=== PATIENT | female | born 1975 | race Caucasian/White ===

== ENCOUNTER → 2017-08-02 | Outpatient (CLI) | payer OTHER | LOC: OD 11:03 | DX: O09.00 Supervision of pregnancy with history of infertility, unspecified trimester (principal); Z3A.00 Weeks of gestation of pregnancy not specified; N92.6 Irregular menstruation, unspecified | CPT/HCPCS: 36415; 84144; 84702 ==

== ENCOUNTER → 2017-08-05 | Outpatient (CLI) | payer OTHER | LOC: OD 10:01 | DX: O09.00 Supervision of pregnancy with history of infertility, unspecified trimester (principal) | CPT/HCPCS: 36415; 84702 ==

== ENCOUNTER → 2017-08-09 | Outpatient (CLI) | payer OTHER | LOC: LAB 15:39 | DX: O09.00 Supervision of pregnancy with history of infertility, unspecified trimester (principal); Z3A.00 Weeks of gestation of pregnancy not specified | CPT/HCPCS: 36415; 84702 ==

== ENCOUNTER → 2017-09-09 | Outpatient (CLI) | payer OTHER | LOC: OD 14:57 | DX: O09.00 Supervision of pregnancy with history of infertility, unspecified trimester (principal); N92.6 Irregular menstruation, unspecified | CPT/HCPCS: 36415; 84144; 84702 ==

== ENCOUNTER 2019-05-20 20:00 | Emergency (ER) | payer OTHER ==
--- NOTE | 2019-05-20 20:52 | ER Document Report ---
ED Psych Disorder / Suicide - General Stated Complaint: IVC Time Seen by Provider: 05/20/19 20:44 Primary Care Provider: TAYLOR BANERJEE,PRABHU GUTIERREZ MD [Primary Care Provider] - Follow up as needed Notes: Patient is a 43-year-old female that comes emergency department for chief complaint of being placed on IVC paperwork for homicidal ideations. Reportedly patient's is currently hospitalized, patient was reporting anger that he allowed himself to become ill and was making statements that she was going to take him home against doctor's wishes, kill him at home, and kill all of the children. is still hospitalized with an infection. [facility] had been contacted and they performed the IVC paperwork. Patient does have a history of bipolar disorder and possibly schizoid or schizoaffective. She is not on any medications, remain medical history includes celiac disease and GERD/PUD. On my initial evaluation patient is not responding to any questions, demanding that she not have to change her clothes and stating she was going to leave. TRAVEL OUTSIDE OF THE [place] IN LAST 30 DAYS: No - Related Data Allergies/Adverse Reactions: bacitracin [From Neosporin] Allergy (Severe, Verified 01/25/16 10:18) inflammation neomycin sulfate [From Neosporin] Allergy (Severe, Verified 01/25/16 10:18) [place] Penicillins Allergy (Severe, Verified 01/25/16 10:18) Anaphylaxis bacitracin zinc [From Neosporin] Allergy (Mild, Verified 01/25/16 10:18) [place] gramicidin D [From Neosporin] Allergy (Mild, Verified 01/25/16 10:18) [place] polymyxin B [From Neosporin] Allergy (Mild, Verified 01/25/16 10:18) [place] polymyxin B sulfate [From Neosporin] Allergy (Mild, Verified 01/25/16 10:18) Flushing Past Medical History - General Information source: Patient - Social History Smoking Status: Unknown if Ever Smoked Lives with: Family Family History: Reviewed & Not Pertinent - Past Medical History Cardiac Medical History: Denies: Hx Coronary Artery Disease, Hx Heart Attack, Hx Hypertension Pulmonary Medical History: Reports: Hx Bronchitis - hx of , Hx Pneumonia - hx of Denies: Hx Asthma, Hx COPD Neurological Medical History: Reports: Hx Migraine. Denies: Hx Cerebrovascular Accident, Hx Seizures GI Medical History: Reports: Hx Gastroesophageal Reflux Disease, Hx Ulcer Musculoskeletal Medical History: Denies Hx Arthritis Psychiatric Medical History: Reports: Hx Bipolar Disorder, Hx Obsessive Compulsive Disorder Past Surgical History: Reports: Hx Dilation and Curettage, Hx Gynecologic Surgery - d&c, Hx Tubal Ligation. Denies: Hx Hysterectomy, Hx Pacemaker - Immunizations Immunizations up to date: Yes Hx Diphtheria, Pertussis, Tetanus Vaccination: Yes Review of Systems - Review of Systems Constitutional: No symptoms reported EENT: No symptoms reported Cardiovascular: No symptoms reported Respiratory: No symptoms reported Gastrointestinal: No symptoms reported Genitourinary: No symptoms reported Female Genitourinary: No symptoms reported Musculoskeletal: No symptoms reported Skin: No symptoms reported Hematologic/Lymphatic: No symptoms reported Neurological/Psychological: See HPI Physical Exam - Notes Notes: GENERAL: Drowsy but cooperative, responds appropriately HEAD: Normocephalic, atraumatic. EYES: Pupils equal, round, and reactive to light. Extraocular movements intact. ENT: Oral mucosa moist, tongue midline. Oropharynx unremarkable. Airway patent. LUNGS: Clear to auscultation bilaterally, no wheezes, rales, or rhonchi. No re spiratory distress. HEART: Regular rate and rhythm. No murmur ABDOMEN: Soft, non-tender. Non-distended. EXTREMITIES: Moves all 4 extremities spontaneously. No edema, normal radial and dorsalis pedis pulses bilaterally. No cyanosis. BACK: no cervical, thoracic, lumbar midline tenderness. No saddle anesthesia, normal distal neurovascular exam. Moves all extremities in full range of motion. NEUROLOGICAL: Alert and oriented x3. Normal speech. Cranial nerves II through XII grossly intact. PSYCH: Drowsy, calm and relaxed now compared to initial encounter where I was unable to evaluate her completely SKIN: Warm, dry, normal turgor. No rashes or lesions noted. Course - Re-evaluation Re-evalutation: 05/20/19 21:05 Patient attempted to leave, was refusing lab work and to change out for close. However Dr. Epstein was still here, she did speak to the patient and patient did comply and come back to the room and is currently changing and having laboratory testing performed. Dr. Epstein recommends 5 mg of Zyprexa and 1 mg of Cogentin for medications, patient is under IVC paperwork and cannot leave. Patient is erratic and making homicidal statements. 05/20/19 21:44 Patient has become extremely agitated, attempted to leave again, threw herself at me when I attempted to examine her, patient had to be physically restrained. Dr. Epstein is still here, she requests that we start her on Zyprexa and Cogentin IM for severe agitation. She will also be given Benadryl at this time. The other medications were canceled and not given. Hopefully we can remove the restraints soon. 05/20/19 23:10 Patient is drowsy but relaxed and cooperative. She has no complaints at this time. She allows me to physically evaluate her, denies any symptoms at this time. CBC, chemistry unremarkable, alcohol negative, negative, EKG nonspecific especially without complaints of chest pain. Urinalysis still pending but based on her vital signs and evaluation she will be medically cleared regardless. She is on IVC paperwork, she was evaluated by mental health, Dr. Epstein did recommended Zyprexa 5 mg twice daily and Cogentin 1 mg twice daily, these were ordered. Patient will be reevaluated in the morning by the mental health team, she is pending disposition by them and she is medically cleared. - Laboratory Result Diagrams: 05/20/19 21:20 05/20/19 21:20 Laboratory results interpreted by me: 05/20/19 21:20 Salicylates < 1.0 L Acetaminophen < 10 L - EKG Interpretation by Me Additional EKG results interpreted by me: EKG shows sinus rhythm at a rate of 83, normal axis, QTC is borderline at 470, borderline right bundle branch block with borderline T waves anteriorly as well. No ischemic T waves ST segment changes in consecutive leads noted. Discharge - Discharge Clinical Impression: Homicidal ideations, Bizarre behavior Condition: Stable Disposition: PSYCH HOSP/UNIT Referrals: TAYLOR BANERJEE,PRABHU GUTIERREZ MD [Primary Care Provider] - Follow up as needed
[2019-05-20 21:33] LABS: ABSOLUTE BASOPHILS # (AUTO) 0.1 10^3/uL (0.0-0.2); ABSOLUTE EOSINOPHILS # (AUTO) 0.1 10^3/uL (0.0-0.6); ABSOLUTE LYMPHOCYTES (AUTO) 2.9 10^3/uL (0.5-4.7); ABSOLUTE MONOCYTES (AUTO) 0.7 10^3/uL (0.1-1.4); BASOPHILS % (AUTO) 1.1 % (0-2); EOSINOPHILS % (AUTO) 1.5 % (0-6); HEMATOCRIT 39.6 % (36.0-47.0); HEMOGLOBIN 13.7 g/dL (12.0-15.5); LYMPHOCYTES % (AUTO) 29.7 % (13-45); MEAN CORPUSCULAR HEMOGLOBIN 29.5 pg (27.0-33.4); MEAN CORPUSCULAR HGB CONC 34.5 g/dL (32.0-36.0); MEAN CORPUSCULAR VOLUME 86 fl (80-97); MONOCYTES % (AUTO) 7.1 % (3-13); PLATELET COUNT 287 10^3/uL (150-450); RED BLOOD COUNT 4.63 10^6/uL (3.72-5.28); RED CELL DISTRIBUTION WIDTH 12.9 % (11.5-14.0); SEGMENTED NEUTROPHILS % (AUTO) 60.6 % (42-78); TOTAL CELLS COUNTED % (AUTO) 100 %; WHITE BLOOD COUNT 9.9 10^3/uL (4.0-10.5)
[2019-05-20] MEDS ORDERED: DIPHENHYDRAMINE HCL 50 MG/ML VIAL IM ONE (21:39)
[2019-05-20] MEDS ORDERED: HALOPERIDOL LACTATE INJ 5 MG/1 ML VIAL IM ONE (21:39)
[2019-05-20] MEDS ORDERED: LORAZEPAM INJ 2 MG/1 ML VIAL IM ONE (21:39)
[2019-05-20] MEDS ORDERED: CHLORPROMAZINE HCL INJ 25 MG/1 ML AMPULE IM ONE (21:40)
[2019-05-20] MEDS ORDERED: OLANZAPINE INJ/PF 10 MG SDV IM ONE (21:43)
[2019-05-20] MEDS ORDERED: BENZTROPINE MESYLATE INJ 2 MG/2 ML AMPULE IM ONE (21:44)
[2019-05-20 21:54] LABS: ALBUMIN 4.5 g/dL (3.5-5.0); ALKALINE PHOSPHATASE 66 U/L (38-126); ANION GAP 12 (5-19); ASPARTATE AMINO TRANSFERASE 21 U/L (14-36); BILIRUBIN,DIRECT 0.2 mg/dL (0.0-0.4); BILIRUBIN,TOTAL 0.7 mg/dL (0.2-1.3); BLOOD UREA NITROGEN 15 mg/dL (7-20); CALCIUM 9.3 mg/dL (8.4-10.2); CARBON DIOXIDE 26 mmol/L (22-30); CHLORIDE 102 mmol/L (98-107); GLUCOSE 91 mg/dL (75-110); POTASSIUM 3.8 mmol/L (3.6-5.0); TOTAL PROTEIN 8.1 g/dL (6.3-8.2)
[2019-05-20 21:57] LABS: ACETAMINOPHEN < 10 ug/mL (10-30); ALCOHOL < 10 mg/dL (NONE DETECTED); SALICYLATE < 1.0 mg/dL (2.0-20.0)
[2019-05-21] MEDS ORDERED: BENZTROPINE MESYLATE 1 MG TABLET PO SCH (10:00)
[2019-05-21] MEDS ORDERED: OLANZAPINE 5 MG TABLET PO SCH (10:00)
--- NOTE | 2019-05-21 11:53 | PSYCHOLOGICAL NOTE ---
Psych Note - Psych Note Date seen by psych provider: 05/21/19 Time seen by psych provider: 11:00 Psych Note: Reason for consult: SI/HI Patient is a 43 year old female who presents to ED via [facility] on IVC petition after she endorsed suicidal and homicidal ideations. Patient threatened to take pills or drive into traffic. Patient threatened to kill her and her children. Patient states she is "angry." Patient states she is usually able to manage her anger, but became "overwhelmed" yesterday. Patient states is not sick. Patient states the "Doctors are just stupid and overly cautious." Patient begged clinician for discharge. Patient states she has "things to do" (clean the home, go to work, take care of children). Clinician notes significant OCD tenancies (must vacuum daily, must use certain rags, must clean patient's way). Patient has historically provided care for children and on her own. Speaking of her , patient states "he's stupid and doesn't listen to me, he's gained a lot of weight, he's over 500lbs." Patient denies current SI/HI. Patient states she was angry and overwhelmed and "said things out of anger." Patient is linked with [facility] through [facility] due to her child having a diagnosis of Autism with behavior concerns. Per chart review, patient is refusing to eat Patient states she will "sign a waiver for discharge." Patient states "keeping me here is just going to make me worse." Patient remarked that all of this is being done against my will. Clinician discussed her not eating. Patient states she "will eat my own food at home." Clinician notes patient has little insight into her current circumstance. Clinician notes patient attempts to exert control her environment and family. Clinician attempted to speak with patient regarding taking care of her self care, being strong for the family for so long, control the environment when we don't feel control inside, needing help, etc. Patient was receptive, yet unable to verbalize insight into how her thoughts and behaviors are contributing factor s. Collateral information obtained from Quynh Medley from [facility], [facility] logistics team lead. Patient and family received services for 6 months about a year ago. [facility] has been back with the family since the end of March 2019. Quynh states patient's presentation is "out of character." Quynh states patient is generally "anxious, yet loving and fun with the children." Patient has a child with "challenging behaviors" that can be overwhelming for patient. Quynh stated patient was "very open with everyone" regarding her SI/HI. Quynh states patient is in denial regarding her 's health concerns. Patient was informed of transfer to [facility]. Patient stated "I have to go to work tomorrow, I'll eat your food, I took your medicine." Clinician informed patient those were pieces of the bigger picture, and clinician continued to explain the transfer process to include patient has to be handcuffed during transpo per [facility] policy. Patient requested clinician inform her . Patient is alert and oriented to person, place, time and circumstance. Mood is tearful with congruent affect. Patient denies current suicidal and homicidal ideations. There is no observed behavior that suggests patient is responding to internal stimuli. Patient denies current auditory and visual hallucinations. Eye contact is appropriate. Conversational speech is mildly pressured. Intellectual ability appears to be within average range. Attention and concentration are good. Insight, judgment and impulse control are currently poor. Medication recommendations per [facility] contracted psychiatrist Dr. Jerry RIDER is as follows: Zyprexa 5MG, twice a day Cogentin 1MG, twice a day Impression/Plan: Patient is recommended for continued IVC. Medication recommendations have been provided. Patient endorsed SI/HI. Patient has limited insight into how her thoughts and behaviors are contributing to her circumstance. There is no observed behavior that suggests patient is responding to internal stimuli. Plan is to stabilize and obtain appropriate placement. Cluster B traits are noted. CPS report was placed. Patient was accept to for placement at [facility]. Patient was Dr. Epstein was consulted on the care and management of this patient; attending physician is in agreement with recommendations and disposition.
[2019-05-21 11:59] VITALS: BP 126/77
--- NOTE | 2019-05-21 12:53 | ER Document Report ---
Doctor's Note Notes: 05/21/19 12:49 44-year-old female brought in yesterday for evaluation of anger management, homicidal ideation. Patient required restraint last night both chemical and physical. Patient was medically cleared for psychiatric care, evaluated by psychiatric care. Patient meets criteria for involuntary commitment given her c ontinued anger and homicidal intent. Patient is awake and alert answering questions appropriately. She does indicate she would prefer to go home. She is aware that she is being transferred to a facility under IVC today. Patient is moving all extremities well. She still does endorse aggressive thoughts. Lung sounds are clear to auscultation. Regular rate and rhythm. is at the bedside for transport. discussed with attending Dr. Fry who evaluated patient (JIAN RODRIGUEZ) 05/21/19 15:27 I did personally see and examine this patient in conjunction with [employer] Jian Rodriguez. Patient is having continuing anger and aggression, she is still concerning for possible harm to others. Still meets IVC criteria. Had received sedating medications last evening. Has no complaints aside from the fact that she would like to go home. Patient is stable for transport with the health commissioner. No respiratory distress, moves all 4 extremities spontaneously, no facial droop. Mentating well. (THOMAS FRY)
--- NOTE | 2019-05-21 22:02 | EKG REPORT ---
SEVERITY:- ABNORMAL ECG - SINUS RHYTHM INCOMPLETE RIGHT BUNDLE BRANCH BLOCK : Confirmed by: Juan David Leslie 21-May-2019 22:02:27
== END 2019-05-21 12:58 ==
LOC: ER 20:00
DX: R45.850 Homicidal ideations (principal); R45.4 Irritability and anger
CPT/HCPCS: 93005; 99285; 96372; 36415; 80307 ×3; 84703; 85025; 80053; 93010; J0515; J1200

== ENCOUNTER → 2019-11-06 | Outpatient (CLI) | payer OTHER ==
[2019-11-06 13:37] LABS: A TYPE INFLUENZA AG NEGATIVE (NEGATIVE); B INFLUENZA AG NEGATIVE (NEGATIVE)
[2019-11-06 14:12] VITALS: BP 123/54
--- NOTE | 2019-11-06 14:12 | ER RDC ASSESSMENT REPORT ---
Intake - In the Last 14 days Have you traveled outside [place]?: No Have you been in close contact with someone CONFIRMED: No Worked in Healthcare?: No - Symptoms Subjective Fever([place] feverish): No Chills: Yes Muscule Aches: No Runny Nose: No Sore Throat: No Cough (New or worsening chronic cough): Yes Shortness of breath: No Nausea or Vomiting: Yes Headache: Yes Abdominal Pain: Yes Diarrhea(3 or more loose stools in last 24 hours): Yes - Do you have any of the following Chronic lung disease: Asthma or emphysema or COPD: No Cystic Fibrosis: No Diabetes: No High Blood Pressure: No Cardiovascular Disease: No Chronic Kidney Disease: No Chronic Liver Disease: No Chronic blood disorder like Sickle Cell Disease: No Weak immune system due to disease or medication: No Neurologic condition that limits movement: No Developmental delay - Moderate to Severe: No Recent (within past 2 weeks) or current : No Morbid Obesity (>100 pounds over ideal weight): No - Objective Vital Signs: 5'5" 216 lb Temperature: 97.4 F Pulse Rate: 108 Respiratory Rate: 18 Blood Pressure: 123/54 O2 Sat by Pulse Oximetry: 95 Objective: Given above, testing performed: flu, strep, covid Disposition: Home; Selfcare General - General Chief Complaint: Flu Symptoms Time Seen by Provider: 11/06/19 12:15 Mode of Arrival: Ambulatory Information source: Patient - HPI Notes: 44-year-old female presents to [facility] clinic for COVID-19 testing. Patient has medical history significant only for GERD and DJD. Patient reports onset of symptoms 10/31/2019. She is reporting moderate chills, fatigue, lethargy, cough that is dry, nausea, headache, abdominal pain and diarrhea. No exacerbating or relieving factors. She is denying any fever, myalgia, rhinorrhea, sore throat or shortness of breath. - Related Data Allergies/Adverse Reactions: bacitracin [From Neosporin] Allergy (Severe, Verified 01/25/16 10:18) inflammation neomycin sulfate [From Neosporin] Allergy (Severe, Verified 01/25/16 10:18) [place] Penicillins Allergy (Severe, Verified 01/25/16 10:18) Anaphylaxis bacitracin zinc [From Neosporin] Allergy (Mild, Verified 01/25/16 10:18) [place] gramicidin D [From Neosporin] Allergy (Mild, Verified 01/25/16 10:18) [place] polymyxin B [From Neosporin] Allergy (Mild, Verified 01/25/16 10:18) [place] polymyxin B sulfate [From Neosporin] Allergy (Mild, Verified 01/25/16 10:18) Flushing Past Medical History - General Information source: Patient - Social History Smoking Status: Never Smoker Family History: Reviewed & Not Pertinent - Past Medical History Cardiac Medical History: Reports: None Denies: Hx Coronary Artery Disease, Hx Heart Attack, Hx Hypertension Pulmonary Medical History: Reports: Hx Bronchitis - hx of , Hx Pneumonia - hx of Denies: Hx Asthma, Hx COPD EENT Medical History: Reports: None Neurological Medical History: Reports: Hx Migraine. Denies: Hx Cerebrovascular Accident, Hx Seizures Renal/ Medical History: Reports: None Malignancy Medical History: Reports: None GI Medical History: Reports: Hx Gastroesophageal Reflux Disease, Hx Ulcer Musculoskeletal Medical History: Reports None, Denies Hx Arthritis Skin Medical History: Reports None Psychiatric Medical History: Reports: Hx Bipolar Disorder, Hx Obsessive Compulsive Disorder Traumatic Medical History: Reports: None Infectious Medical History: Reports: None Past Surgical History: Reports: Hx Dilation and Curettage, Hx Gynecologic Surgery - d&c, Hx Tubal Ligation. Denies: Hx Hysterectomy, Hx Pacemaker Physical Exam - General General appearance: Alert In distress: None Notes: PHYSICAL EXAMINATION: GENERAL: Ill-appearing but in no acute distress. HEAD: Atraumatic, normocephalic. EYES: sclera anicteric, conjunctiva are normal. ENT: nares patent. Moist mucous membranes. NECK: Normal range of motion, supple without lymphadenopathy LUNGS: CTAB and equal. No wheezes rales or rhonchi. HEART: Regular rate and rhythm without murmurs ABDOMEN: Soft, nontender, normal bowel sounds, no guarding. EXTREMITIES: Normal range of motion, no pitting edema. No cyanosis. NEUROLOGICAL: Cranial nerves grossly intact. Normal speech. PSYCH: Normal mood, normal affect. SKIN: Warm, Dry, normal turgor, no rashes or lesions noted Diagnostic Results Laboratory Results: 11/06/19 12:45 Throat Throat Culture - Pending Influenza A (Rapid) NEGATIVE (NEGATIVE) 11/06/19 12:45 Influenza B (Rapid) NEGATIVE (NEGATIVE) 11/06/19 12:45 Group A Strep Rapid NEGATIVE (NEGATIVE) 11/06/19 12:45 Patient Education/Counseling Counseling/Education: Patient presents with upper respiratory symptoms worrisome for possible Covid 19. Patient does not have emergency worrying symptoms such as difficulty breathing, shortness of breath, chest pain, pressure, confusion or cyanosis. Patient appears suitable for discharge as vital signs are stable and patient is nontoxic in appearance. Encouraged fluids to prevent further dehydration. Good return precautions have been discussed with patient, patient verbalized understanding and is agreeable with discharge plan of care at this time. Guidance for worsening S/SX: As a person under investigation for Covid 19, the [place] department of Health and Human Services, division of public health advises you to adhere to the following guidance until your test results are reported to you. If your test result is positive, you will receive additional information from your provider and your local health department at that time. Remain at home until you are cleared by the health provider or public health authorities. Keep a log of visitors to your home, notify any visitors to your home of your isolation status. If you plan to move to a new address or leave the county, notify the local health department in your County. Call your doctor or seek care if you have an urgent medical need. Before seeking medical care, call ahead to get instructions from the provider before arriving at the medical office clinic or hospital. Notify them that you are being tested for the virus that causes Covid 19 so that arrangements can be made, as necessary, to prevent transmission to others in the healthcare setting. Next, notify the local health department in your county. If a medical emergency arises and you need to call 911, inform the first responders that you are being tested for the virus that causes Covid 19. Next, notify the local health department in your county. RDC Discharge - Discharge Clinical Impression: Encounter for screening laboratory testing for COVID-19 virus Diarrhea Qualifiers: Diarrhea type: unspecified type Qualified Code(s): R19.7 - Diarrhea, unspecified Condition: Stable Disposition: Home; Selfcare
== END ==
LOC: RDC 11:58
PROVIDERS: ATTEND Registered Nurse
DX: Z20.828 Contact with and (suspected) exposure to other viral communicable diseases (principal)
CPT/HCPCS: 87070; 87880; 87635; 87804; C9803

== ENCOUNTER 2020-01-06 06:54 | Day surgery (SDC) | payer OTHER ==
[2020-01-06] MEDS ORDERED: PROPOFOL INJ 200 MG/20 ML VIAL IV ONE (07:36)
--- NOTE | 2020-01-06 09:06 | Operative Report ---
Operative Report DATE OF SURGERY: 01/06/20 Operative Report: The risks benefits and alternatives of the procedure explained to the patient in detail and informed consent is obtained.A GIF Olympus video scope was inserted into the patient's mouth and hypopharynx, the esophagus is identified intubated and insufflated ,the scope was then advanced through the esophagus stomach and duodenum, retroflexion maneuver is done, the esophagus stomach and first and second portions of the duodenum examined PREOPERATIVE DIAGNOSIS: Gastroesophageal reflux disease POSTOPERATIVE DIAGNOSIS: Gastritis status post biopsy. Small hiatal hernia OPERATION: EGD with biopsy SURGEON: AFSANEH DE JESUS ANESTHESIA: LMAC TISSUE REMOVED OR ALTERED: As noted above. COMPLICATIONS: None. ESTIMATED BLOOD LOSS: None. INTRAOPERATIVE FINDINGS: As noted above. PROCEDURE: Patient tolerated the procedure well. No immediate postprocedure complications are noted. Patient is discharged in good condition. Discharge date 01/06/2020. Discharge diet: Regular. Discharge activity: Regular. 2 to 3-week follow-up to discuss findings. Patient is instructed to call the office or proceed to the emergency room should there be any further problems or questions. Wait on the pathology.
[2020-01-06 09:37] VITALS: BP 123/89
== END 2020-01-06 09:37 | disposition home or self-care (01) ==
LOC: END 06:54
PROVIDERS: ATTEND Internal Medicine Gastroenterology
DX: K29.50 Unspecified chronic gastritis without bleeding (principal); K44.9 Diaphragmatic hernia without obstruction or gangrene; K21.9 Gastro-esophageal reflux disease without esophagitis; Z88.0 Allergy status to penicillin
CPT/HCPCS: 43239; 88305 ×2; J2704

== ENCOUNTER → 2020-01-15 | Outpatient (CLI) | payer OTHER ==
--- NOTE | 2020-01-15 18:19 | RADIOLOGY REPORT (SQ) ---
EXAM DESCRIPTION: NM HIDA SCAN WITH CCK IMAGES COMPLETED DATE/TIME: 01/15/2020 10:59 am REASON FOR STUDY: BILIOUS VOMITING R11.14 BILIOUS VOMITING COMPARISON: None. RADIONUCLIDE AND DOSE: DOSAGE RADIONUCLIDE: 5.39 millicuries Tc99m Mebrofenin. DOSAGE CCK: 1.9 micrograms. DOSAGE MORPHINE: Not required. The route of agent administration: Intravenous TECHNIQUE: Serial imaging right upper quadrant up to 60 minutes following injection of radionuclide. CCK injected after gallbladder visualized. LIMITATIONS: None. FINDINGS: LIVER: Normal visualization without areas of photopenia. INTRAHEPATIC BILE DUCTS: Normal size and no delay in visualization. COMMON BILE DUCT: Normal without dilatation. GALLBLADDER: Normal visualization. Calculated ejection fraction of 78%. Normal range is greater th an 35%. PHYSICAL RESPONSE: 3 out of 5 nausea, reportedly reproduction of symptoms. OTHER: No other significant finding. IMPRESSION: Normal gallbladder ejection fraction. Patient did suffer similar symptoms with CCK inje ction but the study is otherwise normal. TECHNICAL DOCUMENTATION: JOB ID: [id number] 2010 [employer]- All Rights Reserved Reading location - IP/workstation name: [email or web address]
--- NOTE | 2020-01-15 18:19 | RADIOLOGY REPORT (SQ) ---
EXAM DESCRIPTION: U/S ABDOMEN LIMITED W/O DOP IMAGES COMPLETED DATE/TIME: 01/15/2020 10:59 am REASON FOR STUDY: BILIOUS VOMITING R11.14 BILIOUS VOMITING COMPARISON: None. TECHNIQUE: Dynamic and static grayscale images acquired of the abdomen and recorded on PACS. Additio nal selected color Doppler and spectral images recorded. Note: Exam does not meet criteria for a complete doppler/duplex scan LIMITATIONS: Study limited due to acoustical interference from fat or from air in the bowel. FINDINGS: PANCREAS: Poorly seen secondary to acoustical interference from fat or from air in the bow el. No visualized masses. Duct normal caliber as seen. LIVER: Echotexture is coarse with increased echogenicity consistent with fatty infiltration. LIVER VASCULATURE: Normal directional flow of the main portal vein and hepatic veins. GALLBLADDER: No stones. Normal wall thickness. No pericholecystic fluid. ULTRASOUND-DETECTED THAKKAR'S SIGN: Negative. INTRAHEPATIC DUCTS AND COMMON DUCT: CBD and intrahepatic ducts normal caliber. No filling defects. INFERIOR VENA CAVA: Normal flow. AORTA: No aneurysm. RIGHT KIDNEY: Normal size. Normal echogenicity. No solid or suspicious masses. No hydronephrosis. No calcifications. PERITONEAL AND PLEURAL SPACES: No ascites or effusions. OTHER: No other significant finding. IMPRESSION: FATTY INFILTRATION OF THE LIVER. NO OTHER SIGNIFICANT FINDING IN THE VISUALIZED ABDOMEN. TECHNICAL DOCUMENTATION: JOB ID: [id number] [employer]- All Rights Reserved Reading location - IP/workstation name: [email or web address]
== END ==
LOC: RAD 07:44
PROVIDERS: ATTEND Internal Medicine Gastroenterology
DX: R11.14 Bilious vomiting (principal)
CPT/HCPCS: 76705; 78227; J2805; A9537; Q9969

== ENCOUNTER 2020-03-23 07:08 | Day surgery (SDC) | payer OTHER ==
[2020-03-21 11:50] LABS: HEMATOCRIT 41.5 % (36.0-47.0); HEMOGLOBIN 14.5 g/dL (12.0-15.5); MEAN CORPUSCULAR HEMOGLOBIN 29.6 pg (27.0-33.4); MEAN CORPUSCULAR VOLUME 85 fl (80-97); PLATELET COUNT 266 10^3/uL (150-450); RED BLOOD COUNT 4.91 10^6/uL (3.72-5.28); RED CELL DISTRIBUTION WIDTH 13.2 % (11.5-14.0); WHITE BLOOD COUNT 10.6 10^3/uL (4.0-10.5)
[2020-03-21 12:18] LABS: ALBUMIN 4.6 g/dL (3.5-5.0); ALKALINE PHOSPHATASE 79 U/L (38-126); AMYLASE 62 U/L (30-110); ANION GAP 16 (5-19); ASPARTATE AMINO TRANSFERASE 21 U/L (14-36); BILIRUBIN,TOTAL 0.4 mg/dL (0.2-1.3); BLOOD UREA NITROGEN 14 mg/dL (7-20); CALCIUM 9.8 mg/dL (8.4-10.2); CARBON DIOXIDE 20 mmol/L (22-30); CHLORIDE 105 mmol/L (98-107); GLUCOSE 92 mg/dL (75-110); POTASSIUM 4.3 mmol/L (3.6-5.0)
[~2020-03-23 07:08] MED LIST: ACETAMINOPHEN 325 MG TABLET PO PRN; CIPROFLOXACIN HCL 500 MG TABLET PO PRN; FENTANYL CITRATE INJ/PF 250 MCG/5 ML AMPULE ONE; LACTATED RINGERS 1000 ML IV PRN; LIDOCAINE 0.5% INJ-PF (5 MG/ML) 50 ML SDV SUBCUT PRN; MIDAZOLAM 2 MG/2 ML INJ ONE; PROPOFOL INJ 200 MG/20 ML VIAL IV ONE; RINGERS SOLUTION,LACTATED 1,000 ML IV PRN; SUGAMMADEX SODIUM 200 MG/2 ML SDV IV ONE
[2020-03-23] MEDS ORDERED: CIPROFLOXACIN 400 MG/D5W RTU 400 MG/200 ML RTUPB IV ONE (08:30)
[2020-03-23] MEDS ORDERED: BUPIVACAINE HCL 0.25 % INJ/PF (2.5 MG/1 ML) 30 ML VIAL ONE (08:34)
[2020-03-23] MEDS ORDERED: CIPROFLOXACIN 400 MG/D5W RTU 400 MG/200 ML RTUPB IV PRN (08:46)
[2020-03-23] MEDS ORDERED: PROMETHAZINE HCL INJ 25 MG/1 ML VIAL IV PRN ×2 (09:19)
[2020-03-23] MEDS ORDERED: MORPHINE SULFATE 10 MG/ML INJ IV PRN (09:19)
[2020-03-23] MEDS ORDERED: FENTANYL CITRATE INJ/PF 100 MCG/2 ML AMPUL IV PRN ×3 (09:19)
[2020-03-23] MEDS ORDERED: OXYCODONE-ACETAMINOPHEN 5-325 MG TABLET PO PRN ×3 (09:19→09:53)
[2020-03-23] MEDS ORDERED: MEPERIDINE HCL/PF INJ 25 MG/1 ML DISP.SYRIN IV PRN (09:19)
[2020-03-23] MEDS ORDERED: DIPHENHYDRAMINE HCL 50 MG/ML VIAL IV PRN (09:19)
--- NOTE | 2020-03-23 09:47 | Operative Report ---
Operative Report DATE OF SURGERY: 03/23/20 PREOPERATIVE DIAGNOSIS: Chronic cholecystitis with cholelithiasis POSTOPERATIVE DIAGNOSIS: Same OPERATION: Laparoscopic cholecystectomy SURGEON: ALESSANDRA LYN CORRECTIONAL CORPORAL: FEDER[facility]I ANESTHESIA: GA TISSUE REMOVED OR ALTERED: 1 gallbladder with contents COMPLICATIONS: None ESTIMATED BLOOD LOSS: Minimal INTRAOPERATIVE FINDINGS: See below PROCEDURE: Patient was taken to the preop holding area the main operating where general anesthesia was induced. Arms abducted, abdomen prepped and draped in sterile fashion and instrumentation set up for laparoscopic cholecystectomy Plan and surgical timeout were conducted. Markings were made on the skin for for port laparoscopy. All sites anesthetized with 1% plain lidocaine. A vertical incision was made over the umbilicus with a 15 blade, Veress needle inserted the peritoneal cavity, pneumoperitoneum was established. Veress needle was removed, 5 mm port was inserted, 5 mm flexible viewing scope was inserted into the peritoneal cavity. There was no evidence of vascular or visceral injury. Under direct visualization 3 additional ports were placed, one in the subxiphoid, and 2 in the subcostal position There were moderate adhesions between the infundibulum of the gallbladder, and the subhepatic space. These adhesions were taken down using a combination of blunt and careful hook electrocautery dissection. Graspers were then placed on the fundus and the infundibulum of the gallbladder, and the gallbladder was elevated off of the inferior surface of the liver. The neck of the gallbladder junction with the cystic duct was dissected out. The triangle of Calot opened sufficiently to identify the cystic duct and cystic artery clearly. The cystic artery was clipped twice proximally once distally divided with scissors. The critical view was obtained. Photos were obtained. We are now about to divide the cystic duct. We got on both the right and left sides of the cystic duct to confirm we were out to divide the cystic duct as intended. The cystic duct clipped twice proximally once distally divided with scissors. The gallbladder was removed from the liver bed using hook cautery dissection. The specimen was removed from the supraumbilical port site incision without difficulty and no spillage of bile. The specimen was sent to pathology for permanent analysis. We returned the peritoneal cavity check for bleeding there was none. Photos of the artery and cystic duct stumps with the respective clips obtained. Patient was leveled out. Sponge and counts are correct. All ports removed under direct visualization, pneumoperitoneum evacuated, wounds closed with 0 Vicryl, 3-0 Vicryl, benzoin and Steri-Strips. Patient tolerated the procedure well, extubated, and taken to the recovery room in stable condition. BILL Salas assisted with port insertion, tissue retraction, and closure of operative incisions.
--- NOTE | 2020-03-23 09:53 | Discharge Summary ---
Discharge Summary (SDC) - Discharge Final Diagnosis: chronic cholecystitis Date of Surgery: 03/23/20 Discharge Date: 03/23/20 Condition: Good Forms: ASU Anesthesia D/C Instruction, Discharge POC-Surgical Service Treatment or Instructions: [facility] [address], [place] [address] Discharge Instructions: Laparoscopic Surgery 1. General Information: a. DO NOT DRIVE a car or operate dangerous machinery for 3-4 days or while taking narcotic pain pills. b. DO NOT consume alcohol, tranquilizers, sleeping medications or any non- prescribed medications for 24 hours unless approved by your doctor or as long as taking narcotic prescription medications. c. DO NOT make important decisions or sign any important papers for the first 24 hours after surgery. d. When discharged home the same day of surgery have a responsible person with you for the first night. 2. Activity Restrictions: 2 weeks a. NO heavy lifting, straining abdominal muscles, bending over a lot, yard work, house work, or sports for [address] for 3-4 days . c. It is fine to go for walks, up and down steps, ride in a car. d. Elevate your head when sleeping/resting. 3. Treatment: a. You may shower 24 hours after surgery, no baths or swimming for 2 weeks. Remove band-aids or dressings before shower but leave paper strips (steri- strips) on the skin to fall off on their own. If still on at postoperative visit they will be removed then. b. Drainage of fluid or blood is not unusual from an incision. If occurs, you can clean with peroxide and cotton ball daily and cover with dry gauze until the wound seals. c. If a lot of bleeding occurs, you can hold pressure with a gauze or cloth over the site for 10 minutes and it will usually stop. If bleeding continues you will need to call for possible evaluation in office or emergency room. 4. Medications: a. __Toradol_ may be taken for pain as needed, one tablets every 6 hours. Do not take additional NSAIDs with medication. You may take Tylenol as needed. b. You should resume all normal medications unless a change is specified by your doctors. 5. Diet: Begin with clear liquids and may progress to your normal diet if not nauseated. No high fat, high protein foods the day of surgery. 6. The following may occur after laparoscopic surgery: a. Shoulder or upper back ache from retained gas that should resolve in 1-2 days b. Soreness and bruising at incision sites will resolve with time. c. Scrotal swelling (labia in women) and bruising is often seen after hernia surgery. d. Sore throat e. Fatigue may last days to weeks. f. Difficulty urinating may occur and may need to come into emergency room for urinary catheter placement. 7. Notify Physician If: a. Worsening or pain not improved with pain medication b. Persistent nausea and vomiting c. Fever above 101 d. Persistent bleeding or swelling at operative site e. Unable to urinate and uncomfortable bladder 6-8 hours after surgery 8..Follow Up Care: a. Schedule a follow up appointment with your doctor for 2 weeks. In the event of any postoperative problems or questions or you may call the office during business hours or the On-Call physician evenings and weekends at [facility]. [facility] I understand the instructions for my postoperative care as described above and a copy has been given to me. Patient/Significant Other Witness Date Prescriptions: Ketorolac Tromethamine [Toradol 10 mg Tablet] 10 mg PO Q6HP PRN #20 tablet PRN Reason: Referrals: ALESSANDRA CUELLO MD [ACTIVE STAFF] - Discharge Diet: Other (Comments) - small bland portions then progress Discharge Activity: Balance Activity w/Rest, No Lifting Over 10 Pounds, No Lifting/Push/Pulling Report the Following to Your Physician Immediately: Nausea, Vomiting, Increase in Pain, Fever over 101 Degrees, Unusual Bleeding, Redness, Swelling, Warmth, Drainage-Foul Smelling
[2020-03-23] MEDS ORDERED: PROMETHAZINE HCL INJ 25 MG/1 ML VIAL ONE (10:08)
[2020-03-23] MEDS: MEPERIDINE HCL/PF INJ 25 MG/1 ML DISP.SYRIN ONE ×2 (10:15→10:20)
[2020-03-23] MEDS ORDERED: OXYCODONE-ACETAMINOPHEN 5-325 MG TABLET ONE (10:53)
[2020-03-23] MEDS ORDERED: SUCCINYLCHOLINE CHLORIDE INJ 200 MG/10 ML VIAL ONE (16:09)
[2020-03-23] MEDS ORDERED: METOCLOPRAMIDE HCL INJ/PF 10 MG/2 ML SDV ONE (16:09)
[2020-03-23] MEDS ORDERED: KETOROLAC TROMETHAMINE 60 MG/2 ML SDV ONE (16:09)
[2020-03-23] MEDS ORDERED: DEXAMETHASONE SOD PHOSPHATE INJ 4 MG/1 ML VIAL ONE (16:09)
[2020-03-23] MEDS ORDERED: ONDANSETRON HCL INJ/PF 4 MG/2 ML SDV ONE (16:09)
[2020-03-23] MEDS ORDERED: ROCURONIUM BROMIDE INJ 50 MG/5 ML VIAL IV ONE (16:09)
[2020-03-23] MEDS ORDERED: DIPHENHYDRAMINE HCL 50 MG/ML VIAL ONE (16:09)
[2020-03-23 17:17] VITALS: BP 122/80
--- OUTSIDE RECORDS SUMMARY | 2020-03-24 17:54 | XMS REPORT ---
:1975 Author Organization [facility] Address [facility] [address] [place] [address] Care Team Providers Name Role Phone Bundle Attending Clinician Unavailable Bundle Attending Clinician Unavailable Seun Attending Clinician Unavailable Allergies, Adverse Reactions, Alerts This patient has no known allergies or adverse reactions. Medications Ordered Filled Start Stop Current Ordering Indication Dosage Frequency Signature Comments Components Medication Medication Date Date Medication? Clinician (SIG) Name Name diazepam 5 No diazepam 5 mg tablet mg tablet eszopiclone No eszopiclon 2 mg tablet e 2 mg tablet eszopiclone No eszopiclon 3 mg tablet e 3 mg tablet gabapentin No gabapentin 100 mg 100 mg capsule capsule hydroxyzine No hydroxyzin pamoate 25 e pamoate mg capsule 25 mg capsule ibuprofen No ibuprofen 600 mg 600 mg tablet tablet ibuprofen No ibuprofen 800 mg 800 mg tablet tablet levofloxaci No levofloxac n 500 mg in 500 mg tablet tablet oxycodone-a No oxycodone- cetaminophe acetaminop n 5 mg-325 hen 5 mg tablet mg-325 mg tablet prednisone No prednisone 10 mg 10 mg tablet tablet ProAir HFA No ProAir HFA 90 90 mcg/actuati mcg/actuat on aerosol ion inhaler aerosol inhaler risperidone No risperidon 2 mg tablet e 2 mg tablet risperidone No risperidon 3 mg tablet e 3 mg tablet sertraline No sertraline 100 mg 100 mg tablet tablet trazodone No trazodone 50 mg 50 mg tablet tablet triazolam No triazolam 0.25 mg 0.25 mg tablet tablet benzonatate No benzonatat 200 mg e 200 mg capsule capsule benztropine No benztropin 2 mg tablet e 2 mg tablet cefdinir No cefdinir 300 mg 300 mg capsule capsule clindamycin No clindamyci HCl 300 mg n HCl 300 capsule mg capsule cyclobenzap No cyclobenza rine 10 mg renetta 10 tablet mg tablet Problems Condition Condition Condition Status Onset Resolution Last Treatin g Comments Name Details Category Date Date Treatment Clinician Date Not on file Not on file [id number] Procedures Procedure Date / Time Performed Performing Clinician Devic e OFFICE/OUTPATIENT VISIT EST 2019-11-03 14:30:00 XR, lumbar spine 2019-10-22 00:00:00 MRI, lumbar spine, w/o contrast 2019-10-22 00:00:00 OFFICE/OUTPATIENT VISIT EST 2017-11-06 13:30:00 OFFICE/OUTPATIENT VISIT EST 2017-01-29 16:15:00 OFFICE/OUTPATIENT VISIT EST 2016-12-20 08:30:00 Results Test Description Test Time Test Comments Text Results Atomic Results Result Comments SARS-CoV-2, JOSE\S\ 2020-01-01 00:00:00 Test Item Value Reference Range Comments SARS-CoV-2, JOSE (test code = 05091-7) Not Detected Not Detect ed LIPID PANEL, [id number] 09:03:00 Test Item Value Reference Range Comments HDL CHOLESTEROL (test code = 42496119) 68 mg/dL > OR = 50 CHOLESTEROL, TOTAL (test code = 72100776) 192 mg/dL <200 TRIGLYCERIDES (test code = 48280453) 60 mg/dL <150 CHOL/HDLC RATIO (test code = 70600557) 2.8 (calc) <5.0 LDL-CHOLESTEROL (test code = 43903303) 109 mg/dL (calc) NON HDL CHOLESTEROL (test code = 50603419) 124 mg/dL (calc) <130 CBC (INCLUDES DIFF/PLT)2019-12-01 09:03:00 Test Item Value Reference Range Comments NEUTROPHILS (test code = 40670437) 66.8 % ABSOLUTE NEUTROPHILS (test code = 50069806) 6079 cells/uL 1500 -7800 PLATELET COUNT (test code = 80598683) 279 Thousand/uL 140-400 BASOPHILS (test code = 04195441) 0.8 % ABSOLUTE EOSINOPHILS (test code = 47794686) 264 cells/uL 15-5 00 HEMOGLOBIN (test code = 60361791) 14.5 g/dL 11.7-15.5 RED BLOOD CELL COUNT (test code = 39078718) 4.98 Million/uL 3.80 -5.10 MPV (test code = 35976740) 9.3 fL 7.5-12.5 RDW (test code = 79566883) 13.4 % 11.0-15.0 MCV (test code = 29465914) 87.8 fL 80.0-100.0 MCH (test code = 17389691) 29.1 pg 27.0-33.0 EOSINOPHILS (test code = 18115761) 2.9 % ABSOLUTE MONOCYTES (test code = 12340775) 582 cells/uL 200-95 0 MCHC (test code = 85101974) 33.2 g/dL 32.0-36.0 MONOCYTES (test code = 67869735) 6.4 % LYMPHOCYTES (test code = 33742620) 23.1 % WHITE BLOOD CELL COUNT (test code = 9.1 Thousand/uL 3.8-10.8 63418819) ABSOLUTE BASOPHILS (test code = 75172217) 73 cells/uL 0-200 ABSOLUTE LYMPHOCYTES (test code = 51668045) 2102 cells/uL 850- 3900 HEMATOCRIT (test code = 83733816) 43.7 % 35.0-45.0 HEMOGLOBIN A1c WITH [id number] 09:03:00 Test Item Value Reference Range Comments eAG (mg/dL) (test code = 27190678) 94 (calc) HEMOGLOBIN A1c (test code = 4548-4) 4.9 % of total Hgb <5.7 eAG (mmol/L) (test code = 32362517) 5.2 (calc) VITAMIN D,25-OH,TOTAL,[id number] 09:03:809661JDVOFLB [id number] 09:03:00 [id number] METABOLIC [id number] 09:03:00 Test Item Value Reference Range Comments CALCIUM (test code = 9.3 mg/dL 8.6-10.2 98724316) CREATININE (test code = 0.80 mg/dL 0.50-1.10 05344378) BUN/CREATININE RATIO (test NOT APPLICABLENOT APPLICABLE 11-01 code = 74519827) (calc) CARBON DIOXIDE (test code = 24 mmol/L 20-32 21519417) PROTEIN, TOTAL (test code = 7.4 g/dL 6.1-8.1 99872362) GLUCOSE (test code = 92 mg/dL 65-99 59334467) GLOBULIN (test code = 2.9 g/dL (calc) 1.9-3.7 78762091) ALBUMIN (test code = 4.5 g/dL 3.6-5.1 58048491) ALKALINE PHOSPHATASE (test 86 U/L 31-125 code = 60668030) AST (test code = 89694521) 19 U/L 10-35 ALBUMIN/GLOBULIN RATIO (test 1.6 (calc) 1.0-2.5 code = 76678895) ALT (test code = 16133344) 23 U/L 6-29 UREA NITROGEN (BUN) (test 18 mg/dL 7-25 code = 87950254) BILIRUBIN, TOTAL (test code = 0.5 mg/dL 0.2-1.2 65168871) SODIUM (test code = 30614390) 139 mmol/L 135-146 eGFR (test 145702 mL/min/1.73m2 > OR = 60 code = 46233544) CHLORIDE (test code = 104 mmol/L 98-110 55472243) POTASSIUM (test code = 4.4 mmol/L 3.5-5.3 29937115) eGFR NON-AFR. VENEZUELAN (test 89 mL/min/1.73m2 > OR = 60 code = 22805818) [id number] 09:03:[id number] 09:03:001.891.891.891.891.89 COMPREHENSIVE METABOLIC [id number] 14:35:00 Test Item Value Reference Range Comments SODIUM (test code = 34592468) 141 mmol/L 135-146 ALBUMIN/GLOBULIN RATIO (test code = 1.5 (calc) 1.0-2.5 76263494) ALKALINE PHOSPHATASE (test code = 79 U/L 33-115 64229998) UREA NITROGEN (BUN) (test code = 13 mg/dL 7-25 29182216) POTASSIUM (test code = 99441432) 3.6 mmol/L 3.5-5.3 eGFR (test code = 126 mL/min/1.73m2 > OR = 60 97521732) CARBON DIOXIDE (test code = 85662522) 28 mmol/L 20-32 ALBUMIN (test code = 27217687) 4.0 g/dL 3.6-5.1 GLOBULIN (test code = 88944682) 2.7 g/dL (calc) 1.9-3.7 PROTEIN, TOTAL (test code = 20754219) 6.7 g/dL 6.1-8.1 BILIRUBIN, TOTAL (test code = 0.4 mg/dL 0.2-1.2 23271880) CREATININE (test code = 58337725) 0.63 mg/dL 0.50-1.10 eGFR NON-AFR. VENEZUELAN (test code = 109 mL/min/1.73m2 > OR = 60 43902643) ALT (test code = 11807575) 38 U/L 6-29 AST (test code = 55197689) 24 U/L 10-30 CHLORIDE (test code = 73092582) 105 mmol/L 98-110 CALCIUM (test code = 87917272) 8.8 mg/dL 8.6-10.2 BUN/CREATININE RATIO (test code = NOT APPLICABLE (calc) 6-22 24794638) GLUCOSE (test code = 15728705) 125 mg/dL 65-99 CBC (INCLUDES DIFF/PLT)2019-04-14 14:35:00 Test Item Value Reference Range Comments MPV (test code = 67980301) 10.7 fL 7.5-12.5 ABSOLUTE MONOCYTES (test code = 11835489) 510 cells/uL 200-95 0 MCH (test code = 01060271) 29.1 pg 27.0-33.0 MONOCYTES (test code = 71734700) 6.8 % PLATELET COUNT (test code = 33695713) 255 Thousand/uL 140-400 WHITE BLOOD CELL COUNT (test code = 7.5 Thousand/uL 3.8-10.8 00987277) HEMATOCRIT (test code = 16999343) 39.0 % 35.0-45.0 MCV (test code = 16298749) 86.7 fL 80.0-100.0 LYMPHOCYTES (test code = 96418220) 25.3 % BASOPHILS (test code = 87999072) 0.7 % MCHC (test code = 45472266) 33.6 g/dL 32.0-36.0 ABSOLUTE LYMPHOCYTES (test code = 90063105) 1898 cells/uL 850- 3900 ABSOLUTE BASOPHILS (test code = 00652284) 53 cells/uL 0-200 EOSINOPHILS (test code = 02893059) 4.4 % ABSOLUTE NEUTROPHILS (test code = 07531399) 4710 cells/uL 1500 -7800 NEUTROPHILS (test code = 59093320) 62.8 % RDW (test code = 14694849) 11.8 % 11.0-15.0 RED BLOOD CELL COUNT (test code = 29094370) 4.50 Million/uL 3.80 -5.10 ABSOLUTE EOSINOPHILS (test code = 55818628) 330 cells/uL 15-5 00 HEMOGLOBIN (test code = 32595311) 13.1 g/dL 11.7-15.5 CULTURE, URINE, [id number] 16:49:00SEE NOTEHCG, TOTAL, [id number] 15:19:8049034PQV W/GESTATIONAL [id number] 13:07:525846HCM W/GESTATIONAL [id number] 09:35:30516MHK W/GESTATIONAL [id number] 16:12:004CBC (INCLUDES DIFF/PLT)2017-08-01 16:12:00 Test Item Value Reference Range Comments ABSOLUTE MONOCYTES (test code = 97531126) 764 cells/uL 200-95 0 RDW (test code = 74996840) 12.2 % 11.0-15.0 HEMATOCRIT (test code = 27453667) 39.2 % 35.0-45.0 PLATELET COUNT (test code = 10231092) 195 Thousand/uL 140-400 ABSOLUTE EOSINOPHILS (test code = 61175052) 331 cells/uL 15-5 00 ABSOLUTE LYMPHOCYTES (test code = 94570575) 1674 cells/uL 850- 3900 BASOPHILS (test code = 07963889) 0.4 % WHITE BLOOD CELL COUNT (test code = 9.2 Thousand/uL 3.8-10.8 61939394) RED BLOOD CELL COUNT (test code = 46923783) 4.50 Million/uL 3.80 -5.10 ABSOLUTE NEUTROPHILS (test code = 97593681) 6394 cells/uL 1500 -7800 MCHC (test code = 12130520) 34.2 g/dL 32.0-36.0 LYMPHOCYTES (test code = 50672539) 18.2 % HEMOGLOBIN (test code = 00716214) 13.4 g/dL 11.7-15.5 MCV (test code = 39216807) 87.1 fL 80.0-100.0 MPV (test code = 09142419) 11.3 fL 7.5-12.5 EOSINOPHILS (test code = 83735359) 3.6 % MONOCYTES (test code = 84742827) 8.3 % NEUTROPHILS (test code = 27859317) 69.5 % ABSOLUTE BASOPHILS (test code = 60473184) 37 cells/uL 0-200 MCH (test code = 79224327) 29.8 pg 27.0-33.0 COMPREHENSIVE METABOLIC [id number] 16:12:00 Test Item Value Reference Range Comments GLUCOSE (test code = 67467427) 87 mg/dL 65-99 GLOBULIN (test code = 47413596) 2.9 g/dL (calc) 1.9-3.7 CARBON DIOXIDE (test code = 79568259) 25 mmol/L 20-31 CREATININE (test code = 03842354) 0.67 mg/dL 0.50-1.10 AST (test code = 93083903) 26 U/L 10-30 eGFR NON-AFR. VENEZUELAN (test code = 108 mL/min/1.73m2 > OR = 60 29750412) BUN/CREATININE RATIO (test code = NOT APPLICABLE (calc) 6-22 94019961) SODIUM (test code = 53696388) 139 mmol/L 135-146 PROTEIN, TOTAL (test code = 14551196) 7.2 g/dL 6.1-8.1 BILIRUBIN, TOTAL (test code = 0.3 mg/dL 0.2-1.2 05309586) ALKALINE PHOSPHATASE (test code = 63 U/L 33-115 68213915) UREA NITROGEN (BUN) (test code = 15 mg/dL 7-25 28268976) CALCIUM (test code = 02565802) 9.3 mg/dL 8.6-10.2 eGFR (test code = 126 mL/min/1.73m2 > OR = 60 13967237) POTASSIUM (test code = 73813684) 4.4 mmol/L 3.5-5.3 ALBUMIN/GLOBULIN RATIO (test code = 1.5 (calc) 1.0-2.5 62868474) ALT (test code = 58759216) 31 U/L 6-29 CHLORIDE (test code = 46630620) 106 mmol/L 98-110 ALBUMIN (test code = 81479348) 4.3 g/dL 3.6-5.1 Culture, [id number] 15:16:00 Test Item Value Reference Range Comments FINAL REPORT (test code = FR) NO GROWTH [id number] 00:01:00 Test Item Value Reference Range Comments TSH (test code = 524162) 2.24 mIU/L CBC with [id number] 00:01:00 Test Item Value Reference Range Comments MCV (test code = 416508) 88.5 fL 80.0-100.0 Hemoglobin (test code = 394257) 14.0 g/dL 11.7-15.5 Rains % (test code = 293255) 9 % MCH (test code = 568762) 29.3 pg 27.0-33.0 Eos % (test code = 443649) 4 % Baso % (test code = 108502) 0 % Hematocrit (test code = 714792) 42.3 % 35.0-45.0 RDW (test code = 377197) 13.2 % 11.0-15.0 Platelet Count (test code = 244 K/uL 140-400 394762) Smear Review (test code = Criteria for review not met 522391) Absolute Neut (test code = 5160 cells/uL 6389-4790 025608) Absolute Rains (test code = 774 cells/uL 200-950 498900) Absolute Baso (test code = 0 cells/uL 0-200 303474) Lymph % (test code = 683859) 27 % Absolute Lymph (test code = 2322 cells/uL 850-3900 198089) RBC (test code = 448576) 4.78 MIL/uL 3.80-5.10 WBC (test code = 088202) 8.6 K/uL 3.8-10.8 MPV (test code = 158623) 10.4 fL 7.5-12.5 Neutrophils % (test code = 60 % 193231) MCHC (test code = 541863) 33.1 g/dL 32.0-36.0 Absolute Eos (test code = 344 cells/uL 15-500 481137) CMP with Estimated [id number] 00:01:00 Test Item Value Reference Range Comments BUN (test code = 796385) 13 mg/dL 7-25 CO2 (test code = 845357) 22 mmol/L 20-31 Calcium (test code = 466517) 9.4 mg/dL 8.6-10.2 Albumin (test code = 791771) 4.3 g/dL 3.6-5.1 Glucose (test code = 209299) 86 mg/dL 65-99 ALT/SGPT (test code = 310354) 12 U/L 6-29 Bilirubin, Total (test code = 149470) 0.4 mg/dL 0.2-1.2 Total Protein (test code = 037466) 6.8 g/dL 6.1-8.1 Alkaline Phosphatase (test code = 677225) 56 U/L 33-115 Chloride (test code = 584643) 105 mmol/L 98-110 Potassium (test code = 095337) 4.5 mmol/L 3.5-5.3 Est GFR, (test code = 794910) >89 mL/min > =60 Creatinine (test code = 627389) 0.76 mg/dL 0.50-1.10 Est GFR, NonAfrican Georgian (test code = 642230) >89 mL/min >=60 AST/SGOT (test code = 303944) 16 U/L 10-30 Sodium (test code = 113343) 140 mmol/L 135-146 Assessments Condition Name Status Diagnosis Date Treating Clinici an Viral infection, unspecified Active Upper abdominal pain, unspecified Active Other fatigue Active Dizziness and giddiness Active Low back pain Active 2019-10-22 11:26:00 Gastro-esophageal reflux disease Active without esophagitis Unspecified urinary incontinence Active Dysuria Active Body mass index (BMI) 31.0-31.9, adult Active Dysuria Active Nausea with vomiting, unspecified Active Viral infection, unspecified Active Other headache syndrome Active Benign paroxysmal vertigo, right ear Active Dizziness and giddiness Active Abnormal weight gain Active Obesity, unspecified Active Encounters Start End Encounter Admission Attending Care Care Encounter Date/Time Date/Time Type Type Clinicians Facility Department ID 2019-11-05 2019-11-05 [facility] [id number] 00:00:00 00:00:00 2019-11-05 2019-11-05 [facility] [id number] 00:00:00 00:00:00 2019-11-05 2019-11-05 Outpatient [facility] [id number] 00:00:00 00:00:00 2019-11-03 2019-11-03 Outpatient [facility], [facility] BD [id number] 14:30:00 14:30:00 Dali Peña???s [id number] AD and [id number] [facility] y Clini 2019-10-22 2019-10-22 Nelsy NietoOrt [facility], 975 [id number] 00:00:00 00:00:00 Tramaine layton, P.A. P.A. 0611 BILL Santamaria-C: [address] [place] [address], [place] [address], Ph. 2017-11-06 2017-11-06 Outpatient [facility], [facility] 4C [id number] 13:30:00 13:30:00 Dali Children [id number] s [id number] and 736 [facility] 2017-01-29 2017-01-29 [facility] [id number] 16:15:00 16:15:00 Lindy Children [id number] s [id number] and [id number] [facility] 2016-12-20 2016-12-20 [facility] [id number] 08:30:00 08:30:00 Lindy Children [id number] s [id number] and [id number] [facility] Plan of Treatment Planned Activity Planned Date Details Comments Future Scheduled Test [code = ] Future Scheduled Test [code = ] Future Scheduled Test [code = ] Future Scheduled Test [code = ] Future Scheduled Test [code = ] Social History Smoking Status Start Date Stop Date Unknown If Ever Smoked Vital Signs Vital Name Observation Time Observation Value Comments Height 2019-10-22 00:00:00 65 [in_i] BMI (Body Mass Index) 2019-10-22 00:00:00 34.9 kg/m2 Body Weight 2019-10-22 00:00:00 210 [lb_av] Hospital Discharge Instructions 1. Low back pain XR, lumbar spine back care and preventing injuries: care instructions getting back to normal after low back pain: care instructions learning about relief for back pain MRI, lumbar spine, w/o contrast Discussion Note: None recorded.
== END 2020-03-23 12:19 | disposition home or self-care (01) ==
LOC: OROUT 07:08
PROVIDERS: ATTEND Surgery
DX: K81.1 Chronic cholecystitis (principal); Z03.818 Encounter for observation for suspected exposure to other biological agents ruled out; K21.9 Gastro-esophageal reflux disease without esophagitis; Z79.899 Other long term (current) drug therapy; K90.0 Celiac disease
CPT/HCPCS: 36415; 82150; 85027; 87635; 81025; 80076; 80048; 88304 ×2; 47562; J2250; J3490 ×2; J1100; J1200; J1885; J3010; J2175; J2765; J2550; J0330; J2405; J2704; J0744; C9803; 790